=== PATIENT | male | born 1970 | race Two or more races ===

== ENCOUNTER 2017-12-23 12:37 | Inpatient (IN) | payer OTHER ==
[2017-12-23 14:19] VITALS: BMI 28.9
--- NOTE | 2017-12-23 17:02 | HP ---
COWS - Scale Resting Pulse: 0= [place] 80 or Below Sweatin= Chills/Flushing Restless Observation: 3= Extraneous Movement Pupil Size: 0= Normal to Room Light Bone or Joint Aches: 4=Acute Joint/Muscle Pain Runny Nose/ Eye Tearin= Runny Nose/Eyes GI Upset > 30mins: 1= Stomach Cramp Tremor Observation: 1= Tremor [place], Not Seen Yawning Observation: 1= 1-2x During Session Anxiety or Irritability: 2=Irritable/Anxious Goose Flesh Skin: 0=Smooth Skin COWS Score: 15 CIWA Score - CIWA Score Nausea/Vomitin-No Nausea/No Vomiting Muscle Tremors: 2 Anxiety: 4-Mod. Anxious/Guarded Agitation: 3 Paroxysmal Sweats: 1-Minimal Palms Moist Orientation: 0-Oriented Tacttile Disturbances: 3-Moderate Itch/Numb/Burn Auditory Disturbances: 0-None Visual Disturbances: 0-None Headache: 1-Very Mild CIWA-Ar Total Score: 14 Admission ROS S - HPI Chief Complaint: WITHDRAWAL SX FROM ALCOHOL AND HEROIN Allergies/Adverse Reactions: Allergies Allergy/AdvReac Type Severity Reaction Status Date / Time Fish Containing Products Allergy Severe Difficulty Verified 12/23/17 17:04 Breathing History of Present Illness: 47 Y/O MALE WITH A HX HEROIN AND ALCOHOL DEPENDENCE SEEKING DETOX [place]. Exam Limitations: No Limitations - Ebola screening Have you traveled outside of the country in the last 21 days: No Have you had contact with anyone from an Ebola affected area: No Have you been sick,other than usual withdrawal symptoms: No Do you have a fever: No - Review of Systems Constitutional: Chills, Loss of Appetite, Night Sweats, Changes in sleep EENT: reports: Tearing, Nose Congestion Respiratory: reports: No Symptoms reported Cardiac: reports: Lightheadedness GI: reports: Constipated, Nausea, Poor Appetite, Poor Fluid Intake, Vomiting, Indigestion, Abdominal cramping : reports: No Symptoms Reported Musculoskeletal: reports: Back Pain, Joint Pain, Muscle Pain Integumentary: reports: No Symptoms Reported Neuro: reports: Unsteady Gait, Dizziness Endocrine: reports: No Symptoms Reported Hematology: reports: No Symptoms Reported Psychiatric: reports: Orientated x3, Anxious Other Systems: Reviewed and Negative Patient History - Patient Medical History Hx Anemia: No Hx Asthma: No Hx Chronic Obstructive Pulmonary Disease (COPD): No Hx Cardiac Disorders: No Hx Hypertension: Yes (ON ENALAPRIL 10 MG PO DAILY) Hx Hypercholesterolemia: Yes (ON LIPITOR 10 MG HS ) HX Cerebrovascular Accident: No Hx Seizures: No Hx Diabetes: Yes (ON METFORMIN 500 MG PO BID) Hx Liver Disease: No Hx Genitourinary Disorders: No Hx Sexually Transmitted Disorders: No (DENIES) Hx Renal Disease (ESRD): No Hx Thyroid Disease: No Hx Human Immunodeficiency Virus (HIV): No (NEGATIVE HX) Hx Hepatitis C: No Hx Depression: No (DENIES) Hx Suicide Attempt: No (DENIES PAST/PRESENT S/H/I) Hx Bipolar Disorder: No Hx Schizophrenia: No - Patient Surgical History Past Surgical History: No Hx Neurologic Surgery: No Hx Cataract Extraction: No Hx Cardiac Surgery: No Hx Lung Surgery: No Hx Breast Surgery: No Hx Breast Biopsy: No Hx Abdominal Surgery: No Hx Appendectomy: No Hx Cholecystectomy: No Hx Genitourinary Surgery: No Hx Orthopedic Surgery: No Anesthesia Reaction: No - PPD History Previous Implant?: Yes Documented Results: Negative w/o proof Implanted On Prior R Admission?: No PPD to be Administered?: Yes - Reproductive History Patient is a Female of Child Bearing Age (11 -55 yrs old): No (MALE) - Smoking Cessation Smoking history: Current every day smoker Have you smoked in the past 12 months: Yes Aproximately how many cigarettes per day: 35 Hx Chewing Tobacco Use: No Initiated information on smoking cessation: Yes 'Breaking Loose' booklet given: 12/23/17 - Substance & Tx. History Hx Alcohol Use: Yes (VODKA/COGNAC) Hx Substance Use: Yes (HEROIN) Substance Use Type: Alcohol, Heroin Hx Substance Use Treatment: Yes (LAST TX AT [facility] LONG TIME AGO) - Substances Abused Alcohol Route: Oral Amount used: 1/2 FIFTH TO A FIFTH Age of first use: 26 Date of Last Use: 12/23/17 Heroin Route: Inhalation Frequency: Daily Amount used: 35 - 40 BAGS Age of first use: 34 Date of Last Use: 12/23/17 Family Disease History - Family Disease History Family Disease History: Diabetes: Grandparent (HTN), CA: Mother (), Other: Grandparent Admission Physical Exam BHS - Vital Signs Vital Signs: Vital Signs - 24 hr 12/23/17 14:17 Temperature 97.4 F L Pulse Rate 79 Respiratory 18 Rate Blood Pressure 144/99 - Physical General Appearance: Yes: Moderate Distress, Alcohol on Breath, Irritable, Anxious HEENTM: Yes: EOMI, Normocephalic, BOBO, Pharynx Normal, Nasal Congestion Respiratory: Yes: Chest Non-Tender, Lungs Clear, Normal Breath Sounds Neck: Yes: No masses,lesions,Nodules, Supple, Trachea in good position Breast: Yes: Breast Exam Deferred Cardiology: Yes: Regular Rhythm, Regular Rate, S1, S2 Abdominal: Yes: Normal Bowel Sounds, Non Tender, Flat, Soft Genitourinary: Yes: Other (N/C) Back: Yes: Within Normal Limits Musculoskeletal: Yes: full range of Motion, Gait Steady Extremities: Yes: Normal Range of Motion, Non-Tender Neurological: Yes: mission coordinator II-XII NML intact, Fully Oriented, Alert, Motor Strength 5/5 Integumentary: Yes: Dry, Warm Lymphatic: Yes: Within Normal Limits - Diagnostic (1) Opioid dependence with withdrawal Current Visit: Yes Status: Acute (2) Alcohol dependence with uncomplicated withdrawal Current Visit: Yes Status: Acute (3) Hypertension Current Visit: Yes Status: Chronic Qualifiers: Hypertension type: essential hypertension Qualified Code(s): I10 - Essential (primary) hypertension (4) Hypercholesterolemia Current Visit: Yes Status: Chronic (5) Type 2 diabetes mellitus Current Visit: Yes Status: Chronic Qualifiers: Diabetes mellitus complication status: without complication (6) Nicotine dependence Current Visit: Yes Status: Acute Qualifiers: Nicotine product type: cigarettes Substance use status: in withdrawal Qualified Code(s): F17.213 - Nicotine dependence, cigarettes, with withdrawal Cleared for Admission [facility] - Detox or Rehab [facility] Level of Care: Medically Managed Detox Regimen/Protocol: Methadone/Librium [facility] Breath Alcohol Content Breath Alcohol Content: 10 Urine Drug Screen - Results Drug Screen Negative: No Urine Drug Screen Results: RANJAN-Cocaine, OPI-Opiates, MTD-Methadone, OXY- Oxycodone
[2017-12-23] MEDS ORDERED: ACETAMINOPHEN 325 MG TABLET (FP) PO PRN (17:56)
[2017-12-23] MEDS ORDERED: P-EPHED 60MG/TRIPROLIDI 2.5MG TABLET PO PRN (17:56)
[2017-12-23] MEDS ORDERED: chlordiazePOXIDE HCL 25 MG CAPSULE PO PRN (17:56)
[2017-12-23] MEDS ORDERED: NICOTINE POLACRILEX 4 MG GUM BC PRN (17:56)
[2017-12-23] MEDS ORDERED: MAG HYDROX/AL HYDROX/SIMETH 30 ML UNIT-DOSE CUP PO PRN (17:56)
[2017-12-23] MEDS ORDERED: MENTHOL/PHENOL 1 EACH UD MM PRN (17:56)
[2017-12-23] MEDS ORDERED: MAGNESIUM HYDROX 2400MG/30ML ORAL SUSPENSION 30 ML CUP PO PRN (17:56)
[2017-12-23] MEDS ORDERED: MAGNESIUM CITRATE 300 ML BOTTLE PO PRN (17:56)
[2017-12-23] MEDS ORDERED: guaiFENesin/D-METHORPHAN HB 10 ML UNIT-DOSE CUPS PO PRN (17:56)
[2017-12-23] MEDS ORDERED: IBUPROFEN 400 MG TABLET (FP) PO PRN (17:56)
[2017-12-23] MEDS ORDERED: LOPERAMIDE HCL 2 MG CAPSULE PO PRN (17:56)
[2017-12-23] MEDS ORDERED: METHADONE HCL 10 MG TABLET (FOR DETOX USE ONLY) PO ONE ×2 (18:30→23:00)
[2017-12-23] MEDS ORDERED: chlordiazePOXIDE HCL 25 MG CAPSULE PO ONE (18:30)
[2017-12-23] MEDS: NICOTINE 21 MG/24 HOURS TOPICAL PATCH TD SCH (19:53)
[2017-12-23] MEDS ORDERED: cloNIDine HCL 0.1 MG TABLET PO ONE (19:59)
--- NOTE | 2017-12-23 20:02 | PN ---
BHS Progress Note Note: Report received from DESTINY Cole re: patients BP . Clonidine 0.1mg STAT dose order Repeat V/S Continue to monitor
[2017-12-23] MEDS: ALBUTEROL SO4 0.083% IH SOL 2.5 MG/3 ML VIAL.NEB. NEB SCH (20:07)
[2017-12-23] MEDS: chlordiazePOXIDE HCL 25 MG CAPSULE PO SCH (21:59)
[2017-12-23] MEDS: ATORVASTATIN CA 10 MG TABLET (FP) PO SCH (21:59)
[2017-12-23] MEDS: THIAMINE HCL 100 MG TABLET (FP) PO SCH (21:59)
[2017-12-23 23:04] LABS: URINE APPEARANCE CLEAR; URINE BILIRUBIN NEGATIVE (NEGATIVE); URINE BLOOD NEGATIVE (NEGATIVE); URINE COLOR YELLOW; URINE GLUCOSE (UA) NEGATIVE (NEGATIVE); URINE KETONE NEGATIVE (NEGATIVE); URINE LEUK ESTERASE NEGATIVE (NEGATIVE); URINE NITRITE NEGATIVE (NEGATIVE); URINE PROTEIN NEGATIVE (NEGATIVE)
[2017-12-23] MEDS: hydrOXYzine PAMOATE 50 MG CAPSULE (FP) PO PRN (23:37)
[2017-12-24] MEDS: chlordiazePOXIDE HCL 25 MG CAPSULE PO SCH ×4 (05:22→22:06)
[2017-12-24] MEDS: metFORMIN HCL 500 MG TABLET (FP) PO SCH ×2 (07:06→17:37)
[2017-12-24 09:48] LABS: HEMATOCRIT 41.2 % (35.4-49); HEMOGLOBIN 13.8 GM/dL (11.7-16.9); MCH 30.3 pg (25.7-33.7); MCHC 33.4 g/dl (32.0-35.9); MEAN CELL VOLUME 90.7 fl (80-96); MEAN PLT VOLUME 9.9 fl (7.5-11.1); PLATELET COUNT 127 K/MM3 (134-434); RBC 4.55 M/mm3 (4.00-5.60); RDW 13.1 % (11.9-15.9); WHITE BLOOD COUNT 10.1 K/mm3 (4.0-10.0)
[2017-12-24] MEDS ORDERED: METHADONE HCL 10 MG TABLET (FOR DETOX USE ONLY) PO SCH (10:00)
[2017-12-24 10:32] LABS: CHLORIDE 107 mmol/L (98-107); POTASSIUM 3.5 mmol/L (3.5-5.1); SODIUM 144 mmol/L (136-145)
[2017-12-24] MEDS: LISINOPRIL 10 MG TABLET (FP) PO SCH (10:43)
[2017-12-24] MEDS: ASPIRIN 81 MG CHEWABLE TABLETS PO SCH (10:43)
[2017-12-24] MEDS: PRENATAL VITAMINS W/ FOLIC ACID TABLET (FP) PO SCH (10:43)
[2017-12-24] MEDS: ALBUTEROL SO4 0.083% IH SOL 2.5 MG/3 ML VIAL.NEB. NEB SCH ×3 (10:44→22:08)
[2017-12-24] MEDS: NICOTINE 21 MG/24 HOURS TOPICAL PATCH TD SCH (10:44)
[2017-12-24 10:45] LABS: ALBUMIN 3.7 g/dl (3.4-5.0); ALK PHOS 80 U/L (45-117); ANION GAP 8 (8-16); BILIRUBIN,TOTAL 0.5 mg/dL (0.2-1.0); BLOOD UREA NITROGEN 14 mg/dL (7-18); CALCIUM 9.3 mg/dL (8.5-10.1); CO2 29 mmol/L (21-32); CREATININE 0.7 mg/dL (0.7-1.3); GLUCOSE,RANDOM 98 mg/dL (74-106); SGOT/AST 19 U/L (15-37); SGPT/ALT 23 U/L (12-78); TOT PROT 6.7 g/dl (6.4-8.2)
--- NOTE | 2017-12-24 11:36 | PN ---
S CIWA - CIWA Score Nausea/Vomitin-No Nausea/No Vomiting Muscle Tremors: 4-Moderate,w/Arms Extend Anxiety: 4-Mod. Anxious/Guarded Agitation: 4-Moderately Restless Paroxysmal Sweats: 1-Minimal Palms Moist Orientation: 0-Oriented Tacttile Disturbances: 3-Moderate Itch/Numb/Burn Auditory Disturbances: 0-None Visual Disturbances: 0-None Headache: 0-None Present CIWA-Ar Total Score: 16 BHS COWS - Scale Resting Pulse: 0= [place] 80 or Below Sweatin= Chills/Flushing Restless Observation: 3= Extraneous Movement Pupil Size: 2= Moderately Dilated Bone or Joint Aches: 4=Acute Joint/Muscle Pain Runny Nose/ Eye Tearin= Nasal Congestion GI Upset > 30mins: 0= None Tremor Observation of Outstretched Hands: 1= Tremor [place], Not Seen Yawning Observation: 1= 1-2x During Session Anxiety or Irritability: 2=Irritable/Anxious Goose Flesh Skin: 0=Smooth Skin COWS Score: 15 S Progress Note (SOAP) Subjective: C/O IRRITABILITY,RESTLESSNESS,ANXIETY, HOT/COLD FLASHES,INTERMITTENT SLEEP LAST NIGHT, Objective: 12/24/17 11:35 Vital Signs Temperature 96.2 F L 12/24/17 09:50 Pulse Rate 74 12/24/17 09:50 Respiratory Rate 20 12/24/17 09:50 Blood Pressure 137/98 12/24/17 09:50 O2 Sat by Pulse Oximetry (%) Laboratory Last Values WBC 10.1 K/mm3 (4.0-10.0) H 12/24/17 07:30 RBC 4.55 M/mm3 (4.00-5.60) 12/24/17 07:30 Hgb 13.8 GM/dL (11.7-16.9) 12/24/17 07:30 Hct 41.2 % (35.4-49) 12/24/17 07:30 MCV 90.7 fl (80-96) 12/24/17 07:30 MCH 30.3 pg (25.7-33.7) 12/24/17 07:30 MCHC 33.4 g/dl (32.0-35.9) 12/24/17 07:30 RDW 13.1 % (11.9-15.9) 12/24/17 07:30 Plt Count 127 K/MM3 (134-434) L 12/24/17 07:30 MPV 9.9 fl (7.5-11.1) 12/24/17 07:30 Sodium 144 mmol/L (136-145) 12/24/17 07:30 Potassium 3.5 mmol/L (3.5-5.1) 12/24/17 07:30 Chloride 107 mmol/L (98-107) 12/24/17 07:30 Carbon Dioxide 29 mmol/L (21-32) 12/24/17 07:30 Anion Gap 8 (8-16) 12/24/17 07:30 BUN 14 mg/dL (7-18) 12/24/17 07:30 Creatinine 0.7 mg/dL (0.7-1.3) 12/24/17 07:30 Creat Clearance w eGFR > 60 (>60) 12/24/17 07:30 POC Glucometer 84 UNITS (80-120) 12/24/17 05:21 Random Glucose 98 mg/dL (74-106) 12/24/17 07:30 Calcium 9.3 mg/dL (8.5-10.1) 12/24/17 07:30 Total Bilirubin 0.5 mg/dL (0.2-1.0) 12/24/17 07:30 AST 19 U/L (15-37) 12/24/17 07:30 ALT 23 U/L (12-78) 12/24/17 07:30 Alkaline Phosphatase 80 U/L (45-117) 12/24/17 07:30 Total Protein 6.7 g/dl (6.4-8.2) 12/24/17 07:30 Albumin 3.7 g/dl (3.4-5.0) 12/24/17 07:30 Urine Color Yellow 12/23/17 22:50 Urine Appearance Clear 12/23/17 22:50 Urine pH 6.0 (5.0-8.0) 12/23/17 22:50 Ur Specific [place] 1.024 (1.001-1.035) 12/23/17 22:50 Urine Protein Negative (NEGATIVE) 12/23/17 22:50 Urine Glucose (UA) Negative (NEGATIVE) 12/23/17 22:50 Urine Ketones Negative (NEGATIVE) 12/23/17 22:50 Urine Blood Negative (NEGATIVE) 12/23/17 22:50 Urine Nitrite Negative (NEGATIVE) 12/23/17 22:50 Urine Bilirubin Negative (NEGATIVE) 12/23/17 22:50 Urine Urobilinogen 2.0 mg/dL (0.2-1.0) 12/23/17 22:50 Ur Leukocyte Esterase Negative (NEGATIVE) 12/23/17 22:50 Assessment: 12/24/17 11:36 WITHDRAWAL SX Plan: CONTINUE DETOX
[2017-12-24 12:03] LABS: SICKLE CELL SCREEN NEGATIVE (NEGATIVE)
--- NOTE | 2017-12-24 13:59 | EKG ---
Test Reason : Blood Pressure : / mmHG Vent. Rate : 076 BPM Atrial Rate : 076 BPM P-R Int : 134 ms QRS Dur : 090 ms QT Int : 388 ms P-R-T Axes : 072 029 043 degrees QTc Int : 436 ms NORMAL SINUS RHYTHM POSSIBLE LEFT ATRIAL ENLARGEMENT BORDERLINE ECG NO PREVIOUS ECGS AVAILABLE Confirmed by MD Selin, Ever ([id number]) on 12/24/2017 1:58:28 PM Referred By: Confirmed By:Ever Smallwood MD
[2017-12-24] MEDS: ATORVASTATIN CA 10 MG TABLET (FP) PO SCH (22:06)
[2017-12-24] MEDS: THIAMINE HCL 100 MG TABLET (FP) PO SCH (22:06)
[2017-12-24] MEDS: hydrOXYzine PAMOATE 50 MG CAPSULE (FP) PO PRN (22:08)
[2017-12-25] MEDS: metFORMIN HCL 500 MG TABLET (FP) PO SCH ×2 (06:06→17:27)
[2017-12-25] MEDS: chlordiazePOXIDE HCL 25 MG CAPSULE PO SCH ×3 (06:06→17:27)
[2017-12-25] MEDS ORDERED: diphenhydrAMINE HCL 50 MG CAPSULE PO PRN (09:38)
[2017-12-25] MEDS: LISINOPRIL 10 MG TABLET (FP) PO SCH (10:43)
[2017-12-25] MEDS: ASPIRIN 81 MG CHEWABLE TABLETS PO SCH (10:43)
[2017-12-25] MEDS: METHADONE HCL 5 MG TABLET (FOR DETOX USE ONLY) PO SCH (10:43)
[2017-12-25] MEDS: PRENATAL VITAMINS W/ FOLIC ACID TABLET (FP) PO SCH (10:43)
[2017-12-25] MEDS: ALBUTEROL SO4 0.083% IH SOL 2.5 MG/3 ML VIAL.NEB. NEB SCH ×3 (11:06→20:30)
[2017-12-25] MEDS: NICOTINE 21 MG/24 HOURS TOPICAL PATCH TD SCH (11:07)
--- NOTE | 2017-12-25 11:35 | PN ---
S CIWA - CIWA Score Nausea/Vomitin-No Nausea/No Vomiting Muscle Tremors: 4-Moderate,w/Arms Extend Anxiety: 4-Mod. Anxious/Guarded Agitation: 4-Moderately Restless Paroxysmal Sweats: 1-Minimal Palms Moist Orientation: 0-Oriented Tacttile Disturbances: 3-Moderate Itch/Numb/Burn Auditory Disturbances: 0-None Visual Disturbances: 0-None Headache: 0-None Present CIWA-Ar Total Score: 16 BHS COWS - Scale Resting Pulse: 0= [place] 80 or Below Sweatin= Chills/Flushing Restless Observation: 3= Extraneous Movement Pupil Size: 2= Moderately Dilated Bone or Joint Aches: 4=Acute Joint/Muscle Pain Runny Nose/ Eye Tearin= Nasal Congestion GI Upset > 30mins: 0= None Tremor Observation of Outstretched Hands: 2= Slight Tremor Visible Yawning Observation: 2= >3x During Session Anxiety or Irritability: 2=Irritable/Anxious Goose Flesh Skin: 0=Smooth Skin COWS Score: 17 S Progress Note (SOAP) Subjective: BODY ACHES,ANXIETY,IRRITABILITY,SWEATS,INTERMITTENT SLEEP. Objective: 12/25/17 11:33 Vital Signs Temperature 95.5 F L 12/25/17 09:43 Pulse Rate 73 12/25/17 09:43 Respiratory Rate 18 12/25/17 09:43 Blood Pressure 155/102 12/25/17 09:43 O2 Sat by Pulse Oximetry (%) Laboratory Last Values WBC 10.1 K/mm3 (4.0-10.0) H 12/24/17 07:30 RBC 4.55 M/mm3 (4.00-5.60) 12/24/17 07:30 Hgb 13.8 GM/dL (11.7-16.9) 12/24/17 07:30 Hct 41.2 % (35.4-49) 12/24/17 07:30 MCV 90.7 fl (80-96) 12/24/17 07:30 MCH 30.3 pg (25.7-33.7) 12/24/17 07:30 MCHC 33.4 g/dl (32.0-35.9) 12/24/17 07:30 RDW 13.1 % (11.9-15.9) 12/24/17 07:30 Plt Count 127 K/MM3 (134-434) L 12/24/17 07:30 MPV 9.9 fl (7.5-11.1) 12/24/17 07:30 Sickle Cell Screen Negative (NEGATIVE) 12/24/17 07:30 Sodium 144 mmol/L (136-145) 12/24/17 07:30 Potassium 3.5 mmol/L (3.5-5.1) 12/24/17 07:30 Chloride 107 mmol/L (98-107) 12/24/17 07:30 Carbon Dioxide 29 mmol/L (21-32) 12/24/17 07:30 Anion Gap 8 (8-16) 12/24/17 07:30 BUN 14 mg/dL (7-18) 12/24/17 07:30 Creatinine 0.7 mg/dL (0.7-1.3) 12/24/17 07:30 Creat Clearance w eGFR > 60 (>60) 12/24/17 07:30 POC Glucometer 150 UNITS (80-120) 12/25/17 06:06 Random Glucose 98 mg/dL (74-106) 12/24/17 07:30 Calcium 9.3 mg/dL (8.5-10.1) 12/24/17 07:30 Total Bilirubin 0.5 mg/dL (0.2-1.0) 12/24/17 07:30 AST 19 U/L (15-37) 12/24/17 07:30 ALT 23 U/L (12-78) 12/24/17 07:30 Alkaline Phosphatase 80 U/L (45-117) 12/24/17 07:30 Total Protein 6.7 g/dl (6.4-8.2) 12/24/17 07:30 Albumin 3.7 g/dl (3.4-5.0) 12/24/17 07:30 Urine Color Yellow 12/23/17 22:50 Urine Appearance Clear 12/23/17 22:50 Urine pH 6.0 (5.0-8.0) 12/23/17 22:50 Ur Specific [place] 1.024 (1.001-1.035) 12/23/17 22:50 Urine Protein Negative (NEGATIVE) 12/23/17 22:50 Urine Glucose (UA) Negative (NEGATIVE) 12/23/17 22:50 Urine Ketones Negative (NEGATIVE) 12/23/17 22:50 Urine Blood Negative (NEGATIVE) 12/23/17 22:50 Urine Nitrite Negative (NEGATIVE) 12/23/17 22:50 Urine Bilirubin Negative (NEGATIVE) 12/23/17 22:50 Urine Urobilinogen 2.0 mg/dL (0.2-1.0) 12/23/17 22:50 Ur Leukocyte Esterase Negative (NEGATIVE) 12/23/17 22:50 RPR Titer Nonreactive (NONREACTIVE) 12/24/17 07:30 Assessment: 12/25/17 11:33 WITHDRAWAL SX Plan: CONTINUE DETOX BENADRYL DIRECTED HS
[2017-12-25] MEDS: CYCLOBENZAPRINE HCL 10 MG TABLET (FP) PO SCH ×2 (13:45→22:05)
[2017-12-25] MEDS: hydrOXYzine PAMOATE 50 MG CAPSULE (FP) PO PRN ×2 (17:37→22:06)
[2017-12-25] MEDS: THIAMINE HCL 100 MG TABLET (FP) PO SCH (22:05)
[2017-12-25] MEDS: chlordiazePOXIDE 5 MG CAPSULE PO SCH (22:05)
[2017-12-25] MEDS: ATORVASTATIN CA 10 MG TABLET (FP) PO SCH (22:05)
[2017-12-26] MEDS: metFORMIN HCL 500 MG TABLET (FP) PO SCH ×2 (08:14→17:26)
[2017-12-26] MEDS: CYCLOBENZAPRINE HCL 10 MG TABLET (FP) PO SCH ×3 (08:14→22:11)
[2017-12-26] MEDS: chlordiazePOXIDE 5 MG CAPSULE PO SCH ×3 (08:14→17:26)
[2017-12-26] MEDS: ASPIRIN 81 MG CHEWABLE TABLETS PO SCH (10:33)
[2017-12-26] MEDS: METHADONE HCL 5 MG TABLET (FOR DETOX USE ONLY) PO SCH (10:33)
[2017-12-26] MEDS: LISINOPRIL 10 MG TABLET (FP) PO SCH (10:33)
[2017-12-26] MEDS: PRENATAL VITAMINS W/ FOLIC ACID TABLET (FP) PO SCH (10:34)
[2017-12-26] MEDS: NICOTINE 21 MG/24 HOURS TOPICAL PATCH TD SCH (10:34)
[2017-12-26] MEDS: ALBUTEROL SO4 0.083% IH SOL 2.5 MG/3 ML VIAL.NEB. NEB SCH ×4 (11:28→22:11)
--- NOTE | 2017-12-26 12:08 | PN ---
BHS Progress Note (SOAP) Subjective: ANXIETY,SWEATS,IRRITABILITY,INTERMITTENT SLEEP. Objective: 12/26/17 12:07 Vital Signs Temperature 95.8 F L 12/26/17 09:33 Pulse Rate 62 12/26/17 09:33 Respiratory Rate 18 12/26/17 09:33 Blood Pressure 145/91 12/26/17 09:33 O2 Sat by Pulse Oximetry (%) Laboratory Last Values WBC 10.1 K/mm3 (4.0-10.0) H 12/24/17 07:30 RBC 4.55 M/mm3 (4.00-5.60) 12/24/17 07:30 Hgb 13.8 GM/dL (11.7-16.9) 12/24/17 07:30 Hct 41.2 % (35.4-49) 12/24/17 07:30 MCV 90.7 fl (80-96) 12/24/17 07:30 MCH 30.3 pg (25.7-33.7) 12/24/17 07:30 MCHC 33.4 g/dl (32.0-35.9) 12/24/17 07:30 RDW 13.1 % (11.9-15.9) 12/24/17 07:30 Plt Count 127 K/MM3 (134-434) L 12/24/17 07:30 MPV 9.9 fl (7.5-11.1) 12/24/17 07:30 Sickle Cell Screen Negative (NEGATIVE) 12/24/17 07:30 Sodium 144 mmol/L (136-145) 12/24/17 07:30 Potassium 3.5 mmol/L (3.5-5.1) 12/24/17 07:30 Chloride 107 mmol/L (98-107) 12/24/17 07:30 Carbon Dioxide 29 mmol/L (21-32) 12/24/17 07:30 Anion Gap 8 (8-16) 12/24/17 07:30 BUN 14 mg/dL (7-18) 12/24/17 07:30 Creatinine 0.7 mg/dL (0.7-1.3) 12/24/17 07:30 Creat Clearance w eGFR > 60 (>60) 12/24/17 07:30 POC Glucometer 105 UNITS (80-120) 12/25/17 16:26 Random Glucose 98 mg/dL (74-106) 12/24/17 07:30 Calcium 9.3 mg/dL (8.5-10.1) 12/24/17 07:30 Total Bilirubin 0.5 mg/dL (0.2-1.0) 12/24/17 07:30 AST 19 U/L (15-37) 12/24/17 07:30 ALT 23 U/L (12-78) 12/24/17 07:30 Alkaline Phosphatase 80 U/L (45-117) 12/24/17 07:30 Total Protein 6.7 g/dl (6.4-8.2) 12/24/17 07:30 Albumin 3.7 g/dl (3.4-5.0) 12/24/17 07:30 Urine Color Yellow 12/23/17 22:50 Urine Appearance Clear 12/23/17 22:50 Urine pH 6.0 (5.0-8.0) 12/23/17 22:50 Ur Specific [place] 1.024 (1.001-1.035) 12/23/17 22:50 Urine Protein Negative (NEGATIVE) 12/23/17 22:50 Urine Glucose (UA) Negative (NEGATIVE) 12/23/17 22:50 Urine Ketones Negative (NEGATIVE) 12/23/17 22:50 Urine Blood Negative (NEGATIVE) 12/23/17 22:50 Urine Nitrite Negative (NEGATIVE) 12/23/17 22:50 Urine Bilirubin Negative (NEGATIVE) 12/23/17 22:50 Urine Urobilinogen 2.0 mg/dL (0.2-1.0) 12/23/17 22:50 Ur Leukocyte Esterase Negative (NEGATIVE) 12/23/17 22:50 RPR Titer Nonreactive (NONREACTIVE) 12/24/17 07:30 Assessment: 12/26/17 12:07 WITHDRAWAL SX Plan: CONTINUE DETOX BENADRYL HS DIRECTED
[2017-12-26] MEDS: hydrOXYzine PAMOATE 50 MG CAPSULE (FP) PO PRN (17:28)
[2017-12-26] MEDS: THIAMINE HCL 100 MG TABLET (FP) PO SCH (22:10)
[2017-12-26] MEDS: chlordiazePOXIDE HCL 10 MG CAPSULE PO SCH (22:10)
[2017-12-26] MEDS: ATORVASTATIN CA 10 MG TABLET (FP) PO SCH (22:11)
[2017-12-27] MEDS: metFORMIN HCL 500 MG TABLET (FP) PO SCH ×2 (07:19→17:32)
[2017-12-27] MEDS: chlordiazePOXIDE HCL 10 MG CAPSULE PO SCH ×3 (07:19→17:32)
[2017-12-27] MEDS: CYCLOBENZAPRINE HCL 10 MG TABLET (FP) PO SCH ×3 (07:20→22:15)
[2017-12-27] MEDS ORDERED: METHADONE HCL 10 MG TABLET (FOR DETOX USE ONLY) PO SCH (10:00)
[2017-12-27] MEDS: LISINOPRIL 10 MG TABLET (FP) PO SCH (10:23)
[2017-12-27] MEDS: PRENATAL VITAMINS W/ FOLIC ACID TABLET (FP) PO SCH (10:23)
[2017-12-27] MEDS: ASPIRIN 81 MG CHEWABLE TABLETS PO SCH (10:23)
--- NOTE | 2017-12-27 10:28 | PN ---
BHS Progress Note (SOAP) Subjective: PT IS OOB AMBULATING WITH STAEDY GAIT. C/O NOT SLEEPING WELL EVEN WITH THE BENADRYL. Objective: 12/27/17 10:27 Vital Signs Temperature 97.8 F 12/27/17 09:36 Pulse Rate 95 H 12/27/17 09:36 Respiratory Rate 20 12/27/17 09:36 Blood Pressure 126/86 12/27/17 09:36 O2 Sat by Pulse Oximetry (%) Laboratory Last Values WBC 10.1 K/mm3 (4.0-10.0) H 12/24/17 07:30 RBC 4.55 M/mm3 (4.00-5.60) 12/24/17 07:30 Hgb 13.8 GM/dL (11.7-16.9) 12/24/17 07:30 Hct 41.2 % (35.4-49) 12/24/17 07:30 MCV 90.7 fl (80-96) 12/24/17 07:30 MCH 30.3 pg (25.7-33.7) 12/24/17 07:30 MCHC 33.4 g/dl (32.0-35.9) 12/24/17 07:30 RDW 13.1 % (11.9-15.9) 12/24/17 07:30 Plt Count 127 K/MM3 (134-434) L 12/24/17 07:30 MPV 9.9 fl (7.5-11.1) 12/24/17 07:30 Sickle Cell Screen Negative (NEGATIVE) 12/24/17 07:30 Sodium 144 mmol/L (136-145) 12/24/17 07:30 Potassium 3.5 mmol/L (3.5-5.1) 12/24/17 07:30 Chloride 107 mmol/L (98-107) 12/24/17 07:30 Carbon Dioxide 29 mmol/L (21-32) 12/24/17 07:30 Anion Gap 8 (8-16) 12/24/17 07:30 BUN 14 mg/dL (7-18) 12/24/17 07:30 Creatinine 0.7 mg/dL (0.7-1.3) 12/24/17 07:30 Creat Clearance w eGFR > 60 (>60) 12/24/17 07:30 POC Glucometer 258 UNITS (80-120) 12/27/17 05:10 Random Glucose 98 mg/dL (74-106) 12/24/17 07:30 Calcium 9.3 mg/dL (8.5-10.1) 12/24/17 07:30 Total Bilirubin 0.5 mg/dL (0.2-1.0) 12/24/17 07:30 AST 19 U/L (15-37) 12/24/17 07:30 ALT 23 U/L (12-78) 12/24/17 07:30 Alkaline Phosphatase 80 U/L (45-117) 12/24/17 07:30 Total Protein 6.7 g/dl (6.4-8.2) 12/24/17 07:30 Albumin 3.7 g/dl (3.4-5.0) 12/24/17 07:30 Urine Color Yellow 12/23/17 22:50 Urine Appearance Clear 12/23/17 22:50 Urine pH 6.0 (5.0-8.0) 12/23/17 22:50 Ur Specific [place] 1.024 (1.001-1.035) 12/23/17 22:50 Urine Protein Negative (NEGATIVE) 12/23/17 22:50 Urine Glucose (UA) Negative (NEGATIVE) 12/23/17 22:50 Urine Ketones Negative (NEGATIVE) 12/23/17 22:50 Urine Blood Negative (NEGATIVE) 12/23/17 22:50 Urine Nitrite Negative (NEGATIVE) 12/23/17 22:50 Urine Bilirubin Negative (NEGATIVE) 12/23/17 22:50 Urine Urobilinogen 2.0 mg/dL (0.2-1.0) 12/23/17 22:50 Ur Leukocyte Esterase Negative (NEGATIVE) 12/23/17 22:50 RPR Titer Nonreactive (NONREACTIVE) 12/24/17 07:30 Assessment: 12/27/17 10:27 WITHDRAWAL SX Plan: CONTINUE DETOX WILL SEE PSYCH MD FOR INSOMNIA WORK UP TODAY.
[2017-12-27] MEDS: ALBUTEROL SO4 0.083% IH SOL 2.5 MG/3 ML VIAL.NEB. NEB SCH ×3 (10:46→22:17)
[2017-12-27] MEDS: NICOTINE 21 MG/24 HOURS TOPICAL PATCH TD SCH (10:46)
--- NOTE | 2017-12-27 13:21 | CONSULT ---
[facility] Psychiatric Consult - Data Date of interview: 12/27/17 Admission source: [facility] Identifying data: First admission to [facility] for this 47 y/o male seeking detox treatment on for alcohol,heroin and cocaine dependence.Patient is single,father of one,domiciled,unemployed and supported on food stamps. Substance Abuse History: Confirmed by patient in this session.Refer to current [facility] report for details.Smoking history: Current every day smoker. Have you smoked in the past 12 months: Yes. Aproximately how many cigarettes per day: 35. Hx Chewing Tobacco Use: No. Initiated information on smoking cessation: Yes. 'Breaking Loose' booklet given: 12/23/17. - Substance & Tx. History. Hx Alcohol Use: Yes (VODKA/COGNAC). Hx Substance Use: Yes (HEROIN). Substance Use Type: Alcohol, Heroin. Hx Substance Use Treatment: Yes (LAST TX AT [facility] LONG TIME AGO). - Substances Abused. Alcohol. Route: Oral. Amount used: 1/2 FIFTH TO A FIFTH. Age of first use: 26. Date of Last Use: 10/28. Heroin. Route: Inhalation. Frequency: Daily. Amount used: 35 - 40 BAGS. Age of first use: 34. Date of Last Use: 12/23/17 Medical History: Hypertension,diabetes mellitus and dyslipidemia. Psychiatric History: Patient denies. Physical/Sexual Abuse/Trauma History: Patient denies. Additional Comment: Urine Drug Screen Results: RANJAN-Cocaine, OPI-Opiates, MTD- Methadone, OXY-Oxycodone.Noted. Mental Status Exam - Mental Status Exam Alert and Oriented to: Time, Place, Person Cognitive Function: Good Patient Appearance: Well Groomed Mood: Withdrawn, Hopeful Affect: Appropriate, Normal Range Patient Behavior: Fatigued, Appropriate, Cooperative Speech Pattern: Clear, Appropriate Voice Loudness: Normal Thought Process: Intact, Goal Oriented Thought Disorder: Not Present Hallucinations: Denies Suicidal Ideation: Denies Homicidal Ideation: Denies Insight/Judgement: Poor Sleep: Poorly, Difficulty falling asleep Appetite: Good Muscle strength/Tone: Normal Gait/Station: Normal Psychiatric Findings - Problem List ([place] 1, 2,3) (1) Opioid dependence with withdrawal Current Visit: Yes Status: Acute (2) Alcohol dependence with uncomplicated withdrawal Current Visit: Yes Status: Acute (3) Nicotine dependence Current Visit: Yes Status: Acute Qualifiers: Nicotine product type: cigarettes Substance use status: in withdrawal Qualified Code(s): F17.213 - Nicotine dependence, cigarettes, with withdrawal (4) Cocaine dependence Current Visit: Yes Status: Acute (5) Insomnia Current Visit: Yes Status: Acute - Initial Treatment Plan Initial Treatment Plan: Psychoeducation and support.Detoxification in progress.Sleep hygiene.Ambien 10 mg po hs prn.Patient is informed of risk of parasomnias.He agrees to this careplan.Observation.
[2017-12-27] MEDS ORDERED: ZOLPIDEM TARTRATE 10 MG TABLET (PARK CARE ONLY) PO PRN (22:00)
[2017-12-27] MEDS: THIAMINE HCL 100 MG TABLET (FP) PO SCH (22:15)
[2017-12-27] MEDS: ATORVASTATIN CA 10 MG TABLET (FP) PO SCH (22:15)
[2017-12-28] MEDS: CYCLOBENZAPRINE HCL 10 MG TABLET (FP) PO SCH (05:44)
[2017-12-28] MEDS ORDERED: METHADONE HCL 5 MG TABLET (FOR DETOX USE ONLY) PO SCH (06:00)
[2017-12-28 06:17] VITALS: BP 116/69; PULSE 114; TEMP 97.1
[2017-12-28] MEDS: metFORMIN HCL 500 MG TABLET (FP) PO SCH (07:26)
[2017-12-28] MEDS: NICOTINE 21 MG/24 HOURS TOPICAL PATCH TD SCH (10:57)
[2017-12-28] MEDS: ASPIRIN 81 MG CHEWABLE TABLETS PO SCH (10:57)
[2017-12-28] MEDS: ALBUTEROL SO4 0.083% IH SOL 2.5 MG/3 ML VIAL.NEB. NEB SCH (10:57)
[2017-12-28] MEDS: PRENATAL VITAMINS W/ FOLIC ACID TABLET (FP) PO SCH (10:58)
[2017-12-28] MEDS: LISINOPRIL 10 MG TABLET (FP) PO SCH (10:58)
--- NOTE | 2017-12-28 18:13 | DS ---
[facility] Detox Discharge Summary Admission Date: 12/23/17 Discharge Date: 12/28/17 - History Present History: Alcohol Dependence, Opioid Dependence Additional Comments: PATIENT GOING HOME AT THIS TIME, REPORTS THAT HE WILL PURSUE REHAB ADMISSION ON HIS OWN WITHIN THE NEXT FEW DAYS. PATIENT ADVISED TO FOLLOW-UP WITH ECHO VASC[employer] TECHNOLOGIST LJ MORENO ([place], [place] AFTER DISCHARGE FROM DETOX FOR GENERAL MEDICAL ASSESSMENT AND FOR HISTORY OF HTN AND TYPE II DM. PATIENT WAS DISCHARGED FROM DETOX UNIT IN STABLE MEDICAL CONDITION. Pertinent Past History: Nicotine Dependence, Asthma, Type II DM, HTN, Hyperchoelsterolemia, Insomnia. - Physical Exam Results Vital Signs: Vital Signs Temperature 97.1 F L 12/28/17 06:16 Pulse Rate 114 H 12/28/17 06:16 Respiratory Rate 18 12/28/17 06:16 Blood Pressure 116/69 12/28/17 06:16 O2 Sat by Pulse Oximetry (%) Pertinent Admission Physical Exam Findings: WITHDRAWAL SYMPTOMS. Laboratory Tests 12/23/17 12/23/17 12/24/17 19:23 22:50 05:21 WBC RBC Hgb Hct MCV MCH MCHC RDW Plt Count MPV Sickle Cell Screen Sodium Potassium Chloride Carbon Dioxide Anion Gap BUN Creatinine Creat Clearance w eGFR POC Glucometer 94 84 Random Glucose Calcium Total Bilirubin AST ALT Alkaline Phosphatase Total Protein Albumin Urine Color Yellow Urine Appearance Clear Urine pH 6.0 Ur Specific [place] 1.024 Urine Protein Negative Urine Glucose (UA) Negative Urine Ketones Negative Urine Blood Negative Urine Nitrite Negative Urine Bilirubin Negative Urine Urobilinogen 2.0 Ur Leukocyte Esterase Negative RPR Titer 12/24/17 12/24/17 12/24/17 07:30 07:30 07:30 WBC 10.1 H RBC 4.55 Hgb 13.8 Hct 41.2 MCV 90.7 MCH 30.3 MCHC 33.4 RDW 13.1 Plt Count 127 L MPV 9.9 Sickle Cell Screen Negative Sodium 144 Potassium 3.5 Chloride 107 Carbon Dioxide 29 Anion Gap 8 BUN 14 Creatinine 0.7 Creat Clearance w eGFR > 60 POC Glucometer Random Glucose 98 Calcium 9.3 Total Bilirubin 0.5 AST 19 ALT 23 Alkaline Phosphatase 80 Total Protein 6.7 Albumin 3.7 Urine Color Urine Appearance Urine pH Ur Specific [place] Urine Protein Urine Glucose (UA) Urine Ketones Urine Blood Urine Nitrite Urine Bilirubin Urine Urobilinogen Ur Leukocyte Esterase RPR Titer Nonreactive 12/24/17 12/25/17 12/25/17 16:22 06:06 16:26 WBC RBC Hgb Hct MCV MCH MCHC RDW Plt Count MPV Sickle Cell Screen Sodium Potassium Chloride Carbon Dioxide Anion Gap BUN Creatinine Creat Clearance w eGFR POC Glucometer 143 150 105 Random Glucose Calcium Total Bilirubin AST ALT Alkaline Phosphatase Total Protein Albumin Urine Color Urine Appearance Urine pH Ur Specific [place] Urine Protein Urine Glucose (UA) Urine Ketones Urine Blood Urine Nitrite Urine Bilirubin Urine Urobilinogen Ur Leukocyte Esterase RPR Titer 12/26/17 12/27/17 12/27/17 16:24 05:10 16:27 WBC RBC Hgb Hct MCV MCH MCHC RDW Plt Count MPV Sickle Cell Screen Sodium Potassium Chloride Carbon Dioxide Anion Gap BUN Creatinine Creat Clearance w eGFR POC Glucometer 226 258 232 Random Glucose Calcium Total Bilirubin AST ALT Alkaline Phosphatase Total Protein Albumin Urine Color Urine Appearance Urine pH Ur Specific [place] Urine Protein Urine Glucose (UA) Urine Ketones Urine Blood Urine Nitrite Urine Bilirubin Urine Urobilinogen Ur Leukocyte Esterase RPR Titer 12/28/17 05:42 WBC RBC Hgb Hct MCV MCH MCHC RDW Plt Count MPV Sickle Cell Screen Sodium Potassium Chloride Carbon Dioxide Anion Gap BUN Creatinine Creat Clearance w eGFR POC Glucometer 150 Random Glucose Calcium Total Bilirubin AST ALT Alkaline Phosphatase Total Protein Albumin Urine Color Urine Appearance Urine pH Ur Specific [place] Urine Protein Urine Glucose (UA) Urine Ketones Urine Blood Urine Nitrite Urine Bilirubin Urine Urobilinogen Ur Leukocyte Esterase RPR Titer LABS NOTED. - Treatment Hospital Course: Detox Protocol Followed, Detoxed Safely, Responded well, Discharged Condition Good Patient has Accepted a Rehab Referral to: PT GOING HOME, WILL PURSUE REHAB ADMISSION ON HIS OWN AT LATER DATE. - Medication Discharge Medications: Ambulatory Orders Albuterol 0.083% Nebulizer Jocelin [Ventolin 0.083%] 1 neb NEB Q4H 12/23/17 Albuterol Sulfate Inhaler - [Ventolin Hfa Inhaler -] 1 - 2 inh PO Q4H PRN #1 inhaler 12/28/17 Aspirin [Children's Aspirin] 81 mg PO DAILY 30 Days #30 tab.chew 12/28/17 Atorvastatin Ca [Lipitor] 10 mg PO HS 30 Days #30 tablet 12/28/17 Lisinopril [Prinivil -] 10 mg PO DAILY 30 Days #30 tablet 12/28/17 Metformin HCl 500 mg PO BID 30 Days #60 tablet 12/28/17 - Diagnosis (1) Alcohol dependence with uncomplicated withdrawal Status: Acute (2) Cocaine dependence Status: Acute Qualifiers: Substance use status: uncomplicated Qualified Code(s): F14.20 - Cocaine dependence, uncomplicated (3) Insomnia Status: Acute Qualifiers: Insomnia type: unspecified Qualified Code(s): G47.00 - Insomnia, unspecified (4) Nicotine dependence Status: Acute Qualifiers: Nicotine product type: cigarettes Substance use status: in withdrawal Qualified Code(s): F17.213 - Nicotine dependence, cigarettes, with withdrawal (5) Opioid dependence with withdrawal Status: Acute (6) Asthma Status: Chronic Qualifiers: Asthma severity: mild Asthma persistence: unspecified Asthma complication type: uncomplicated Qualified Code(s): J45.909 - Unspecified asthma, uncomplicated (7) Hypercholesterolemia Status: Chronic (8) Hypertension Status: Chronic Qualifiers: Hypertension type: essential hypertension Qualified Code(s): I10 - Essential (primary) hypertension (9) Type 2 diabetes mellitus Status: Chronic Qualifiers: Diabetes mellitus complication status: without complication Diabetes mellitus alf insulin use: without lpc use Qualified Code(s): E11.9 - Type 2 diabetes mellitus without complications - AMA Did Patient Leave Against Medical Advice: No
== END 2017-12-28 09:05 | disposition home or self-care (01) | DRG 773 ==
LOC: YASAS 12:37 → Y3N 18:03
PROVIDERS: ADMIT Internal Medicine; ATTEND Internal Medicine
PROC: HZ2ZZZZ Detoxification Services for Substance Abuse Treatment (ICD-10-PCS; principal; 2017-12-23)
DX: F11.23 Opioid dependence with withdrawal (principal); F10.230 Alcohol dependence with withdrawal, uncomplicated; F14.20 Cocaine dependence, uncomplicated; F17.213 Nicotine dependence, cigarettes, with withdrawal; I10 Essential (primary) hypertension; E78.00 Pure hypercholesterolemia, unspecified; E11.9 Type 2 diabetes mellitus without complications; G47.00 Insomnia, unspecified; J45.909 Unspecified asthma, uncomplicated; Z91.013 Allergy to seafood; Z79.84 Long term (current) use of oral hypoglycemic drugs
CPT/HCPCS: 36415; 80053; 81003; 82962; 85027; 85660; 86593; 93005; 93010; 94640; J0735